=== PATIENT | male | born 1975 | race Caucasian/White ===

== ENCOUNTER 2018-11-17 06:01 | Emergency (ER) | payer SELFPAY ==
[~2018-11-17] VITALS: Ht 170.2 cm; Wt 99.8 kg
[2018-11-17 06:01] VITALS: BP 120/75
[2018-11-17] MEDS ORDERED: fentaNYL 0.05 MG/ML VIAL ONE (06:18)
[2018-11-17] MEDS ORDERED: NACL 0.9% 1,000 ML IV ONE ×2 (06:20→06:25)
[2018-11-17] MEDS ORDERED: fentaNYL 0.05 MG/ML VIAL IVP ONE ×2 (06:25→07:15)
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
[2018-11-17 07:00] LABS: BASOPHILS # (AUTO) 0.1 K/uL (0.00-0.22); BASOPHILS % (AUTO) 0.6 % (0.0-2.0); EOSINOPHILS # (AUTO) 0.4 K/uL (0-0.4); HEMATOCRIT 46.1 % (36-52); HEMOGLOBIN 15.7 g/dL (12.0-18.0); LYMPHOCYTES # (AUTO) 5.2 K/uL (2.0-11.5); LYMPHOCYTES % (AUTO) 52.6 % (20.5-51.1); MEAN CORPUSCULAR HEMOGLOBIN 32 pg (27-31); MEAN CORPUSCULAR HGB CONC 34 g/dL (33-37); MONOCYTES # (AUTO) 0.6 K/uL (0.8-1.0); NEUTROPHILS # (AUTO) 3.7 K/uL (1.8-7.7); NEUTROPHILS % (AUTO) 36.8 % (42.2-75.2); PLATELET COUNT (AUTO) 194 K/uL (140-450); RED BLOOD CELL COUNT(AUTO) 4.95 MIL/uL (4.20-6.10); RED CELL DISTRIBUTION WIDTH 12.9 % (11.6-13.7)
[2018-11-17 07:07] LABS: ALBUMIN 3.6 g/dL (3.4-5.0); ANION GAP 18.5 (8-16); CARBON DIOXIDE 23.1 mmol/L (21-32); POTASSIUM 3.6 mmol/L (3.5-5.1); TOTAL BILIRUBIN 0.3 mg/dL (0.0-1.0)
--- NOTE | 2018-11-17 07:10 | NUR ---
XRAY AT BEDSIDE.
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
--- NOTE | 2018-11-17 07:29 | NUR ---
[facility] at bedside for transfer.
--- NOTE | 2018-11-17 07:33 | NUR ---
[facility] REPORT GIVEM TO MILLER CAVANAUGH. HE STATES THAT HE MOST LIKELY TAKE PT TO [facility] NOT [facility] DUE TO [facility] IS CLOSER.
[2018-11-17 07:45] VITALS: BP 120/75
--- NOTE | 2018-11-17 07:45 | NUR ---
[facility] at bedside to take patient to [facility]. EMS called [facility] requesting to take patient to [facility] since it is closer. [facility] mechanic foreman does not know who he spoke to at [facility] but states it was the MICN. [facility] states that [facility] will contacted [facility] for report. Pt was transferred to [facility] and will now be transferred to [facility].
--- NOTE | 2018-11-17 07:57 | NUR ---
CALLED [facility] FOR REPORT [phone]. [place] [facility]IENT IS ALREADY THERE IN THEIR ED; NO NEED TO GIVE REPORT.
== END 2018-11-17 07:50 | disposition short-term general hospital (02) ==
LOC: MED 06:01
DX: S71.102A Unspecified open wound, left thigh, initial encounter (principal); W34.00XA Accidental discharge from unspecified firearms or gun, initial encounter; Y93.89 Activity, other specified; Y92.89 Other specified places as the place of occurrence of the external cause; Y99.8 Other external cause status
CPT/HCPCS: 36415; 71045; 72170; 73552; 74018; 80053; 85025; 86886; 86900; 86901; 90471; 90715; 96374; 96376; 99285; J3010; J7030; Q0092